=== PATIENT | male | born 2000 | race Hispanic/Latino ===

== ENCOUNTER 2021-07-17 12:16 | Emergency (ER) | payer SELFPAY ==
--- OUTSIDE RECORDS SUMMARY | 2021-07-17 12:19 | XMS REPORT | Continuity of Care Document ---
:2000 Author Organization [facility] t Address [address] [place] [address] Care Team Providers Name Role Phone Carloz CANO Primary Care Physician Unavailable Kadeem YANG Attending Clinician Unavailable Kadeem Yang MD Attending Clinician DO Attending Clinician Attending Clinician Unavailable Kadeem YANG Admitting Clinician Unavailable Payers Payer Name Policy Type Policy Number Effective Date Expiration Date [facility] [id number] 2014 2015 CHOICE MEDICAID 00:00:00 00:00:00 Problems Condition Condition Condition Status Onset Resolution Last Treating Co mments Source Name Details Category Date Date Treatment Clinician Date No known No known Disease Unive rs active active ity of problems problems [facility] Allergies, Adverse Reactions, Alerts Allergy Allergy Status Severity Reaction(s) Onset Inactive Treating Comm ents Source Name Type Date Date Clinician NO KNOWN Drug Active Univers ALLERGIE Class ity of S [facility] Social History Social Habit Start Date Stop Date Quantity Comments Source Exposure to Not sure [facility] SARS-CoV-2 (event) Medica l Branch Sex Assigned At 2000 2000 [facility] 00:00:00 00:00:00 Medical Branch Smoking Status Start Date Stop Date Source Unknown if ever smoked [facility] Medications Ordered Filled Start Stop Current Ordering Indication Dosage Frequency Signature Comments Components Source Medication Medication Date Date Medication? Clinician (SIG) Name Name benzonatate 2021-0 Yes [id number] 200mg Take 1 Univers 200 mg 3-12 capsule by ity of capsule 00:00: mouth 3 [place] 00 (three) Medical times Branch daily as needed for Cough. albuterol Yes [id number] 2{puff} Inhale 2 Univers 90 3-12 Puffs ity of mcg/actuati 00:00: every 4 [place] as on inhaler 00 (four) Medical hours as Branch needed for Wheezing, Shortness of Breath, Bronchospa sm or Chest tightness. NaCl 0.9% 500mL at 999 Univ ers (NS) bolus 3-05 03-05 mL/hr, 500 it y of infusion 20:00: 22:42 mL, IV [place] 500 mL 00 :00 Infusion, Medical ONCE, 1 Branch dose, Fri05/05/20 at 1400, STAT No known No Univers medications ity [facility] Vital Signs Vital Name Observation Time Observation Value Comments Source Systolic blood 2021-05-12 08:53:26 138 mm[Hg] Univer sity [facility] Diastolic blood 2021-05-12 08:53:26 79 mm[Hg] [facility] rate 2021-05-12 08:53:26 97 /min [facility] Body temperature 2021-05-12 08:53:26 37 Lidia [facility] Respiratory rate 2021-05-12 08:53:26 18 /min [facility] Oxygen saturation in 2021-05-12 08:53:26 99 /min [facility] Arterial blood by [facility] Pulse oximetry [place] Body height 2021-05-12 07:22:00 177.8 cm [facility] Body weight 2021-05-12 07:22:00 93.577 kg [facility] BMI 2021-05-12 07:22:00 29.60 kg/m2 [facility] Systolic blood 2020-05-05 22:42:23 137 mm[Hg] Univer sity [facility] Diastolic blood 2020-05-05 22:42:23 76 mm[Hg] [facility] Heart rate 2020-05-05 22:42:23 57 /min [facility] Respiratory rate 2020-05-05 22:42:23 16 /min [facility] in 2020-05-05 22:42:23 99 /min University Arterial blood by [facility] Pulse oximetry Branch Body temperature 2020-05-05 19:32:00 36.33 Lidia [facility] Body weight 2020-05-05 19:32:00 95.255 kg [facility] Procedures Procedure Date / Time Performing Clinician Source Performed EKG-12 LEAD 2021-05-12 08:47:27 Kg Yang [facility] XR CHEST 1 2021-05-12 08:24:25 Kg Yang [facility] NOTICE OF PRIVACY 2021-05-12 07:13:21 Doctor Unassigned, No [facility] PRACTICES Name Medical Branch CONSENT/REFUSAL FOR 2021-05-12 07:13:03 Doctor Unassigned, No [facility] DIAGNOSIS AND TREATMENT Name [facility] XR CHEST 1 2020-05-05 20:21:[address] [facility] LIPASE 2020-05-05 20:13:[address] [facility] MAGNESIUM 2020-05-05 20:13:00 [facility] THYROID STIMULATING 2020-05-05 20:13:00 Jm Merino [facility] HORMONE [facility] COMP. METABOLIC PANEL 2020-05-05 20:13:00 Jm Merino [facility] ([id number]) Medical [place] CBC WITH DIFF 2020-05-05 20:13:[address] [facility] D-DIMER 2020-05-05 20:13:[address] [facility] URINALYSIS 2020-05-05 20:13[facility] (ID NOW RAPID 2020-05-05 20:13:00 Singer Jm [facility] TESTING) Medical Branch Encounters Start End Encounter Admission Attending Care Care Encounter Source Date/Time Date/Time Type Type Clinicians Facility Department ID 2021-05-12 2021-05-12 Emergency X ROLANDO YANG ERT [id number] Univers 01:25:00 02:59:00 WAKILI [facility] 2021-05-12 2021-05-12 [id number] Univers 01:25:00 02:59:00 Kg RIVAS [id number] ity [facility] [id number] [facility] [id number] [address] 2020-05-05 2020-05-05 Emergency MerinoRUST [id number] Univers 13:35:00 16:46:00 Jm Rivas [id number] [facility] [place] [id number] [facility] [id number] [address] 2020-05-05 2020-05-05 Emergency [facility] [id number] Univers 13:35:00 13:35:00 [facility] Results Test Description Test Time Test Comments Results Result Comments Source THYROID STIMULATING HORMONE 2020-05-05 21:10:00 Test Item Value Reference Range Interpretation Comme nts TSH (test code = 1977451332) See_Comment [Automated message] The system which generated this result transmitted ref erence range: 0.45 - 4.70 mIU/L. T he reference range was not used to interpret this result as yaquelin l/abnormal. Lab Interpretation (test code = Normal 34667-5) [facility]:00 Test Item Value Reference Range Interpretation Comments APPEARANCE (test code = Hazy Clear A 2913387213) COLOR (test code = Yellow Yellow 4192204807) PH (test code = 4.8-8.0 8297310299) SP GRAVITY (test code = 1.003-1.030 4861460258) GLU U QUAL (test code = Normal Normal 9867669954) BLOOD (test code = Negative Negative 5293417989) KETONES (test code = Negative Negative 2676623503) PROTEIN (test code = Negative Negative 2887-8) UROBILIN (test code = 2.0 mg/dL Normal A 4084715967) BILIRUBIN (test code = Negative Negative 8615721677) NITRITE (test code = Negative Negative 8877553785) LEUK YANET (test code = Negative Negative 9388098636) RBC/HPF (test code = See_Comment H [Autom ated message] 3186288946) The system [employer] generated this result transmit vishal reference range : 0 - 3 HPF. The refe rence range was not u sed to interpret th is result as normal/abnormal . WBC/HPF (test code = See_Comment [Autom ated message] 6726315012) The system [employer] generated this result transmit vishal reference range : 0 - 5 HPF. The refe rence range was not u sed to interpret th is result as normal/abnormal . BACTERIA (test code = Few Negative A 5417787289) MUCOUS (test code = Moderate Negative LPF A 7740234702) SQ EPITH (test code = <1 HPF 5072050353) Lab Interpretation (test Abnormal code = 09200-1) [facility] NOW RAPID TESTING)2020-05-05 20:54:00 Test Item Value Reference Range Interpretation Comments SARS-CoV-2 Rapid ID NOW Not Detected Not Detected (test code = 47953-3) NIRAV (test code = NIRAV) ID NOW COVID-19 Assay is an isothermal nucleic acid amplification test intended for the qualitative detection of nucleic acid from SARS-CoV-2 viral RNA in nasopharyngeal (GOLD TOOLER) specimens. It is used under Emergency Use Authorization (EUA) by FDA. The limit of detection (LOD) of the assay is 125 Genome Equivalents/mL. A positive result is indicative of the presence of SARS-CoV-2 RNA. ?Clinical correlation with patient history and other diagnostic information is necessary to determine patient infection status. A negative (Not Detected) result does not preclude SARS-CoV-2 infection. In patients with clinical symptoms and other tests that are consistent with SARS-CoV-2 infection, negative results should be treated as presumptive negative and a new specimen should be tested with alternative PCR molecular test. Invalid: Please collect a new specimen for repeat patient testing if clinically indicated. Lab Interpretation Normal (test code = 65073-4) [id number] 20:49:00 Test Item Value Reference Interpretation Comments Range D-DIMER (test code = <0.27 See_Comment [Autom ated 7226782078) message] The system which generated this result transmitted reference range : <0.41 ?g/mL (FEU). The reference range was not used to interpret this result as normal/abnormal . NIRAV (test code = This test may be NIRAV) used in conjunction with a clinical pretest probability (PTP) assessment model to exclude venous thromboembolism (VTE) in patients suspected of deep venous thrombosis (DVT) and pulmonary embolism (PE) A D-Dimer value less than 0.50 ?g/ml (FEU) has a negative predicative value of 96 to 100% (95% CI)and 97 to 100% (95% CI) as an aid in the diagnosis of deep vein thrombosis (DVT) and pulmonary embolism when there is low or moderate pretest probability of PE or DVT. D-Dimer values are expressed in initial fibrinogen equivalent units (FEU)" The assay results should be used with other information, including the clinical context, in forming a diagnosis. Lab Interpretation Normal (test code = 94849-8) [facility] [id number] 20:40:39 No acute cardiopulmonary process. Preliminary Report Dictated by Resident: Juan M Ambrose MD., have reviewed this study and agree with the abovereport.EXAM: XR CHEST 1 VW COMPARISON: 11/23/1959 HISTORY: near syncope FINDINGS: Lungs: The lungs are clear. No pleural effusion or pneumothorax isidentified. Heart/Mediastinum: The cardiomediastinal silhouette is normal in size. Bones: No acuteosseous abnormality is seen. [facility], Radiant Results Inft User - 05/05/2020 2:41 PM CSTEXAM: XR CHEST1 VWCOMPARISON: 11/23/1959HISTORY: near syncope FINDINGS:Lungs: The lungs are clear. No pleural effusion or pneumothorax isidentified.Heart/Mediastinum: The cardiomediastinal silhouette is normal in size.Bones: No acute osseous abnormality is seen.IMPRESSIONNo acute cardiopulmonary process.Preliminary Report Dictated by Resident: Juan M Churchill MD., have reviewed this study and agree with the abovereport. [facility] ([id number])2020-05-05 20:39:00 Test Item Value Reference Range Interpretation Comments NA (test code = 142 mmol/L 135-145 4544021296) K (test code = 3.7 mmol/L 3.5-5 3009028590) CL (test code = 105 mmol/L 98-108 9150741952) CO2 TOTAL (test code = 31 mmol/L 23-31 0451631519) AGAP (test code = 2-16 7521638147) BUN (test code = 14 mg/dL 7-23 4290432851) GLUCOSE (test code = 81 mg/dL 70-110 1517032884) CREATININE (test code 0.73 mg/dL 0.6-1.25 = 4563654379) TOTAL BILI (test code 0.4 mg/dL 0.1-1.1 = 3423267656) CALCIUM (test code = 9.0 mg/dL 8.6-10.6 9918091140) T PROTEIN (test code = 7.7 g/dL 6.3-8.2 8731911615) ALBUMIN (test code = 4.6 g/dL 3.5-5 1933890306) ALK PHOS (test code = 70 U/L 34-122 1080367957) ALTv (test code = 14 U/L 5-50 1742-6) AST(SGOT) (test code = 28 U/L 13-40 0452562885) eGFR Calculation mL/min/1.73m2 (Non-) (test code = 1483475781) eGFR Calculation mL/min/1.73m2 () (test code = 5958076805) NIRAV (test code = NIRAV) Association of Glomerular Filtration Rate (GFR) and Staging of Kidney Disease* + -+ + ---+| GFR (mL/min/1.73 m2) ?| With Kidney Damage ?| ?Without Kidney Damage+ -------+ ------+ ---------+| ?>90 ?| ?Stage one ?| ? Normal ?+ --+ -+ ----+| ?60-89 ?| ?Stage two ?| ? Decreased GFR ? + -+ + ---+| ?30-59 ?| ?Stage three ?| ? Stage three ? + -+ + ---+| ?15-29 ?| ?Stage four ? | ? Stage four ?+ --+ -+ ----+| ?<15 (or dialysis) ? ?| ?Stage five ? | ? Stage five ?+ --+ -+ ----+ *Each stage assumes the associated GFR level has been in effect for at least three months. ?Stages 1 to 5, with or without kidney disease, indicate chronic kidney disease. Notes: Determination of stages one and two (with eGFR >59mL/min/1.73 m2) requires estimation of kidney damage for at least three months as defined by structural or functional abnormalities of the kidney, manifested by either:Pathological abnormalities or Markers of kidney damage (including abnormalities in the composition of the blood or urine or abnormalities in imaging tests). [facility] 20[facility]39:00 Test Item Value Reference Range Interpretation Comments LIPASE (test code = 0842472314) 86 U/L 0-220 Lab Interpretation (test code = Normal 33292-0) [facility] 20:39:00 Test Item Value Reference Range Interpretation Comments MAGNESIUM (test code = 1625165012) 2.1 mg/dL 1.7-2.4 Lab Interpretation (test code = Normal 32633-8) [facility] WITH [id number] 20:34:00 Test Item Value Reference Range Interpretation Comments WBC (test code = See_Comment [Automated 2390-2) message] The sy stem which generated this result transmitted reference range : 4.20 - 10.70 10*3/?L. The reference range was not used to interpret this result as normal/abnormal . RBC (test code = See_Comment [Automated 476-8) message] The sy stem which generated this result transmitted reference range : 4.26 - 5.52 10*6/?L. The reference range was not used to interpret this result as normal/abnormal . HGB (test code = 15.2 g/dL 12.2-16.4 718-7) HCT (test code = 44.5 % 38.4-49.3 4544-3) MCV (test code = 88.3 fL 81.7-95.6 787-2) MCH (test code = 30.2 pg 26.1-32.7 785-6) MCHC (test code = 34.2 g/dL 31.2-35 786-4) RDW-SD (test code = 39.1 fL 38.5-51.6 53073-3) RDW-CV (test code = 12.1 % 12.1-15.4 788-0) PLT (test code = See_Comment [Automated 777-3) message] The sy stem which generated this result transmitted reference range : 150 - 328 10*3/ ?L. The reference r christian was not used to interpret this result as normal/abnormal . MPV (test code = 12.6 fL 9.8-13 59858-2) NRBC/100 WBC (test See_Comment [Automat ed code = 7517269534) message] The system which generated this result transmitted reference range : 0.0 - 10.0 /100 WBCs. The refer ence range was not u sed to interpret th is result as normal/abnormal . NRBC x10^3 (test code <0.01 See_Comment [Auto mated = 4659287534) message] The s ystem which generated this result transmitted reference range : 10*3/?L. The reference range was not used to interpret this result as normal/abnormal . GRAN MAT (NEUT) % 64.7 % (test code = 770-8) IMM GRAN % (test code 0.40 % = 6522437108) LYMPH % (test code = 25.4 % 736-9) MONO % (test code = 8.6 % 5905-5) EOS % (test code = 0.4 % 713-8) BASO % (test code = 0.5 % 706-2) GRAN MAT x10^3(ANC) 6.41 10*3/uL 1.99-6.95 (test code = 6040460809) IMM GRAN x10^3 (test 0.04 10*3/uL 0-0.06 code = 6809625125) LYMPH x10^3 (test code 2.51 10*3/uL 1.09-3.23 = 731-0) MONO x10^3 (test code 0.85 10*3/uL 0.36-1.02 = 742-7) EOS x10^3 (test code = 0.04 10*3/uL 0.06-0.53 L 711-2) BASO x10^3 (test code 0.05 10*3/uL 0.01-0.09 = 704-7) Lab Interpretation Abnormal (test code = 93118-4) [facility]
--- NOTE | 2021-07-17 13:59 | RAD REPORT ---
EXAM DESCRIPTION: RAD - Chest Single View - 07/17/2021 1:52 pm CLINICAL HISTORY: CHEST PAIN COMPARISON: None TECHNIQUE: AP portable chest image was obtained 07/17/2021 1:52 pm . FINDINGS: Lungs are clear. Heart size is upper normal. Vasculature within normal limits. Trachea is midline. No measurable pleural effusion and no pneumothorax. No acute bony abnormality seen. No acute aortic findings suspected. IMPRESSION: No acute cardiopulmonary process.
[2021-07-17 14:00] LABS: Absolute Lymphocytes (CBC) 1.7 K/uL (0.7-4.9); Lymphocytes % 23.9 % (15.3-44.8); MPV 9.8 fL (7.6-11.3); RBC Red Blood Cell Count 5.16 M/uL (4.33-5.43)
[2021-07-17 14:18] LABS: Potassium 4.3 mmol/L (3.5-5.1)
--- NOTE | 2021-07-17 14:32 | ER ---
Nurse's Notes [facility] Name: Donald Worthy Age: 20 yrs Sex: Male : 2000 Arrival Date: 07/17/2021 Time: 12:40 Bed DIS2 Private MD: Diagnosis: Chest pain, unspecified Presentation: 07/17 12:54 Chief complaint: Patient states: Right sided chest pain and muscle spasms that started ww on Friday. Coronavirus screen: Client denies travel out of the [place] in the last 14 days. Ebola Screen: Patient denies travel to an Ebola-affected area in the 21 days before illness onset. Initial Sepsis Screen: Does the patient meet any 2 criteria? No. Patient's initial sepsis screen is negative. Does the patient have a suspected source of infection? No. Patient's initial sepsis screen is negative. Risk Assessment: Do you want to hurt yourself or someone else? Patient reports no desire to harm self or others. Onset of symptoms is unknown. 12:54 Method Of Arrival: Ambulatory ww 12:54 Acuity: SANJEEV 3 ww Triage Assessment: 12:55 General: Appears comfortable, Behavior is cooperative. Pain: Complains of pain in right ww clavicle, anterior aspect of right upper chest and right breast. Neuro: Level of Consciousness is awake, alert, obeys commands, Oriented to person, place, time, situation, Moves all extremities. Gait is steady, Speech is normal. Cardiovascular: Patient's skin is warm and dry. Chest pain is located in right. Respiratory: Airway is patent Respiratory effort is even, unlabored, Respiratory pattern is regular, symmetrical. GI: No signs and/or symptoms were reported involving the gastrointestinal system. : No signs and/or symptoms were reported regarding the genitourinary system. Derm: Skin is intact, is healthy with good turgor. Historical: - Allergies: 12:55 No Known Allergies; ww - Home Meds: 12:55 None [Active]; ww - PMHx: 12:55 None; ww - PSHx: 12:55 None; ww - Immunization history:: Adult Immunizations not up to date. - Social history:: Smoking status: Patient denies any tobacco usage or history of. Screenin:56 Abuse screen: Denies threats or abuse. Denies injuries from another. Nutritional ww screening: No deficits noted. Tuberculosis screening: No symptoms or risk factors identified. Fall Risk None identified. Assessment: 14:11 Reassessment: Patient appears in no apparent distress at this time. No changes from iw previously documented assessment. Patient and/or family updated on plan of care and expected duration. Pain level reassessed. Patient is alert, oriented x 3, equal unlabored respirations, skin warm/dry/pink. Vital Signs: 12:54 BP 138 / 85; Pulse 61; Resp 18; Temp 98.2; Pulse Ox 100% ; Weight 101.15 kg; Height 5 ww ft. 11 in. (180.34 cm); Pain 3/10; 12:54 Body Mass Index 31.10 (101.15 kg, 180.34 cm) ww ED Course: 12:40 Patient arrived in ED. ds1 12:52 Chase Garnett NP is PHCP. pm1 12:53 Travis Joy MD is Attending Physician. pm1 12:55 Triage completed. ww 12:55 Arm band placed on. ww 12:56 EKG done. ww 13:50 Inserted saline lock: 20 gauge in left antecubital area, using aseptic technique. iw 13:53 XRAY Chest (1 view) In Process Unspecified. EDMS 14:11 Marjan Narayan, RN is Primary Nurse. iw Administered Medications: 14:34 Drug: Ketorolac 30 mg Route: IVP; Site: left antecubital; iw Outcome: 14:31 Discharge ordered by . pm1 14:49 Patient left the ED. iw Signatures: Dispatcher [employer] EDMD Missy Calzada ds1 Marjan Narayan RN RN Chase Garnett NP MECHANICAL TECHNOLOGIST pm1 Jess Cyr RN RN ww
--- NOTE | 2021-07-17 14:32 | EDPHYS ---
Physician Documentation [facility] Name: Donald Worthy Age: 20 yrs Sex: Male : 2000 Arrival Date: 07/17/2021 Time: 12:40 Bed DIS2 Private MD: ED Physician Travis Joy HPI: 07/17 13:50 This 20 yrs old Male presents to ER via Ambulatory with complaints of Chest pm1 Pain. 13:50 The patient or guardian reports chest pain that is located primarily in the anterior pm1 aspect of right upper chest. The pain does not radiate. Associated signs and symptoms: Pertinent negatives: abdominal pain, dizziness, headache, nausea, shortness of breath, vomiting. The chest pain is described as sharp. Modifying factors: The symptoms are alleviated by nothing. the symptoms are aggravated by cough, deep breath, palpation of area. Severity of pain: in the emergency department the pain is unchanged. The patient has not experienced similar symptoms in the past. The patient has not recently seen a physician. 13:50 Onset 4 days ago. pm1 Historical: - Allergies: 12:55 No Known Allergies; ww - Home Meds: 12:55 None [Active]; ww - PMHx: 12:55 None; ww - PSHx: 12:55 None; ww - Immunization history:: Adult Immunizations not up to date. - Social history:: Smoking status: Patient denies any tobacco usage or history of. ROS: 13:50 Constitutional: Negative for fever, chills, and weight loss. pm1 13:50 Respiratory: Negative for shortness of breath, cough, wheezing, and pleuritic chest pain, Abdomen/GI: Negative for abdominal pain, nausea, vomiting, diarrhea, and constipation, MS/Extremity: Negative for injury and deformity, Skin: Negative for injury, rash, and discoloration. 13:50 Skin: Negative for injury, rash, and discoloration, Neuro: Negative for headache, weakness, numbness, tingling, and seizure. 13:50 Cardiovascular: Positive for chest pain, Negative for edema, palpitations. 13:50 All other systems are negative. Exam: 13:50 Constitutional: This is a well developed, well nourished patient who is awake, alert, pm1 and in no acute distress. Head/Face: Normocephalic, atraumatic. 13:50 Back: No spinal tenderness. No costovertebral tenderness. Full range of motion. Skin: Warm, dry with normal turgor. Normal color with no rashes, no lesions, and no evidence of cellulitis. MS/ Extremity: Pulses equal, no cyanosis. Neurovascular intact. Full, normal range of motion. 13:50 Eyes: Exam is negative for acute changes, Periorbital structures: no acute changes, Extraocular movements: no acute changes, Conjunctiva: no acute changes, no injection. 13:50 ENT: Exam is negative for acute changes, Mouth: no acute changes, Lips: normal, moist, Oral mucosa: normal, pink and intact, moist. 13:50 Cardiovascular: Exam negative for acute changes, Rate: normal, Rhythm: regular, Pulses: no pulse deficits are appreciated, Heart sounds: normal, normal S1and S2. 13:50 Respiratory: Exam negative for acute changes, respiratory distress, shortness of breath, Breath sounds: are clear throughout. 13:50 Neuro: Exam negative for acute changes, Orientation: is normal, Mentation: is normal, Motor: is normal, moves all fours. Vital Signs: 12:54 BP 138 / 85; Pulse 61; Resp 18; Temp 98.2; Pulse Ox 100% ; Weight 101.15 kg; Height 5 ww ft. 11 in. (180.34 cm); Pain 3/10; 12:54 Body Mass Index 31.10 (101.15 kg, 180.34 cm) ww MDM: 13:53 Data reviewed: vital signs. Data interpreted: Pulse oximetry: on room air is 100 %. pm1 Interpretation: normal. 14:13 Patient medically screened. pm1 14:29 Counseling: I had a detailed discussion with the patient and/or guardian regarding: the pm1 historical points, exam findings, and any diagnostic results supporting the discharge/admit diagnosis, lab results, radiology results, the need for outpatient follow up, to return to the emergency department if symptoms worsen or persist or if there are any questions or concerns that arise at home. 07/17 12:59 Order name: Basic Metabolic Panel; Complete Time: 14:29 pm1 07/17 12:59 Order name: CBC with Diff; Complete Time: 14:13 pm1 07/17 12:59 Order name: Troponin HS; Complete Time: 14:29 pm1 07/17 12:59 Order name: XRAY Chest (1 view); Complete Time: 14:13 pm1 07/17 12:59 Order name: EKG; Complete Time: 13:00 pm1 07/17 12:59 Order name: Cardiac monitoring pm1 07/17 12:59 Order name: EKG - Nurse/Tech pm1 07/17 12:59 Order name: IV Saline Lock pm1 07/17 12:59 Order name: Labs collected and sent pm1 07/17 12:59 Order name: O2 Per Protocol pm1 07/17 12:59 Order name: O2 Sat Monitoring pm1 Administered Medications: 14:34 Drug: Ketorolac 30 mg Route: IVP; Site: left antecubital; iw Disposition Summary: 07/17/21 14:31 Discharge Ordered Location: Home pm1 Problem: new pm1 Symptoms: have improved pm1 Condition: Stable pm1 Diagnosis - Chest pain, unspecified pm1 Followup: pm1 - With: Emergency Department - When: As needed - Reason: Worsening of condition Followup: pm1 - With: Private Physician - When: 2 - 3 days - Reason: Recheck today's complaints, Continuance of care, Re-evaluation by your physician Discharge Instructions: - Discharge Summary Sheet pm1 - Nonspecific Chest Pain, Adult pm1 Forms: - Medication Reconciliation Form pm1 - Thank You Letter pm1 - Antibiotic Education pm1 - Prescription Opioid Use pm1 Prescriptions: - Cyclobenzaprine 10 mg Oral Tablet - take 1 tablet by ORAL route every 8 hours As needed; 30 tablet; Refills: 0, pm1 Product Selection Permitted - Diclofenac Sodium 75 mg Oral tablet,delayed release (DR/EC) - take 1 tablet by ORAL route 2 times per day As needed; 30 tablet; Refills: 0, pm1 Product Selection Permitted Signatures: Dispatcher [employer] aMrjan Carrera RN RN iw Chase Garnett NP [employer] pm1 Jess Cyr RN RN ww
[2021-07-17] MEDS ORDERED: KETOROLAC 30 MG/ML INJ ONE (14:37)
[2021-07-17 14:57] VITALS: BP 138/85; TEMP 98.2; O2SAT 100
--- NOTE | 2021-07-19 07:45 | EKG ---
Test Date: 2021-07-17 Test Time: 12:55:14 [employer]: SHON MEASUREMENT RESULTS: Intervals: Rate: 71 AL: 166 QRSD: 80 QT: 364 QTc: 395 [place]: P: -33 AL: 166 QRS: 85 T: 21 INTERPRETIVE STATEMENTS: Unusual P axis, possible ectopic atrial rhythm ST elevation, probably due to early repolarization Abnormal ECG No previous ECG available for comparison Electronically Signed On 07-19-21 07:37:56 CDT by Jayant Angulo
== END 2021-07-17 14:49 | disposition home or self-care (01) ==
LOC: ER 12:16
DX: R07.9 Chest pain, unspecified (principal)
CPT/HCPCS: 36415; 71045; 80048; 84484; 85025; 93005; 96374; 99284